=== PATIENT | male | born 1930 | race Hispanic/Latino ===

== ENCOUNTER 2016-10-17 10:08 | Outpatient (CLI) | payer MEDICARE, OTHER ==
[2016-10-17 10:40] LABS: Prothrombin Time 22.2 SEC (12.0-14.7)
== END 2016-10-17 10:09 | disposition home or self-care (01) ==
LOC: BURLAB 10:08
PROVIDERS: ATTEND Nurse Practitioner
DX: I48.91 Unspecified atrial fibrillation (principal)
CPT/HCPCS: 36415; 85610

== ENCOUNTER 2016-10-30 08:08 | Outpatient (CLI) | payer MEDICARE, OTHER ==
[2016-10-30 09:07] LABS: Prothrombin Time 26.9 SEC (12.0-14.7)
== END 2016-10-30 08:09 | disposition home or self-care (01) ==
LOC: BURLAB 08:08
PROVIDERS: ATTEND Nurse Practitioner
DX: I48.91 Unspecified atrial fibrillation (principal)
CPT/HCPCS: 36415; 85610

== ENCOUNTER 2016-11-12 07:59 | Outpatient (CLI) | payer MEDICARE, OTHER ==
[2016-11-12 10:12] LABS: ALT (SGPT) 16 U/L (0-55); AST (SGOT) 22 U/L (5-34); Alkaline Phosphatase 142 U/L (40-150); Anion Gap 15 mmol/L (10-20); BUN (Urea Nitrogen) 12 mg/dL (8.4-25.7); Calc. Creatinine Clearance 0 mL/min (70-130); Calcium 9.1 mg/dL (7.8-10.44); Carbon Dioxide 27 mmol/L (23-31); Chloride 103 mmol/L (98-107); Estimated GFR-MDRD 49; Globulin 2.8 g/dL (2.4-3.5); LDL Cholesterol, Calculated 77 mg/dL; Protein, Total 6.7 g/dL (5.8-8.1)
[2016-11-12 13:06] LABS: #Basophils 0.1 thou/uL (0.0-0.2); #Eosinphils 0.8 thou/uL (0.0-0.7); #Lymphocytes 1.1 thou/uL (1.20-3.40); #Monocytes 0.9 thou/uL (0.11-0.59); #Neutrophils 4.2 thou/uL (1.40-6.50); %Basophils 1.3 % (0.0-1.0); %Eosinophils 11.8 % (0.0-10.0); %Monocytes 12.4 % (0.0-10.0); Hematocrit 37.2 % (42.0-52.0); Mean Platelet Volume 7.4 fL (7.4-10.4); Red Blood Cell (RBC) Count 4.09 mill/uL (4.70-6.10); White Blood Cell (WBC) Count 7.1 thou/uL (4.8-10.8)
[2016-11-12 19:44] LABS: Microalbumin Urine 6.5 mg/dL (0.5-50.0)
== END 2016-11-12 08:00 | disposition home or self-care (01) ==
LOC: BURLAB 07:59
PROVIDERS: ATTEND Family Medicine
DX: Z12.5 Encounter for screening for malignant neoplasm of prostate (principal); E78.00 Pure hypercholesterolemia, unspecified; I10 Essential (primary) hypertension; Z13.9 Encounter for screening, unspecified; I48.91 Unspecified atrial fibrillation
CPT/HCPCS: 36415; 80053; 80061; 82043; 82570; 85025; G0103

== ENCOUNTER 2016-11-25 11:56 | Outpatient (CLI) | payer MEDICARE, OTHER ==
[2016-11-25 12:38] LABS: Prothrombin Time 20.4 SEC (12.0-14.7)
== END 2016-11-25 11:57 | disposition home or self-care (01) ==
LOC: BURLAB 11:56
PROVIDERS: ATTEND Nurse Practitioner
DX: I48.91 Unspecified atrial fibrillation (principal)
CPT/HCPCS: 36415; 85610

== ENCOUNTER 2016-12-18 09:11 | Outpatient (CLI) | payer MEDICARE, OTHER ==
[2016-12-18 09:40] LABS: Prothrombin Time 21.4 SEC (12.0-14.7)
== END 2016-12-18 09:12 | disposition home or self-care (01) ==
LOC: BURLAB 09:11
PROVIDERS: ATTEND Nurse Practitioner
DX: I48.91 Unspecified atrial fibrillation (principal)
CPT/HCPCS: 36415; 85610

== ENCOUNTER 2017-01-01 07:57 | Outpatient (CLI) | payer MEDICARE, OTHER ==
[2017-01-01 08:54] LABS: INR-International Normal Ratio 1.4; Prothrombin Time 17.6 SEC (12.0-14.7)
== END 2017-01-01 07:58 | disposition home or self-care (01) ==
LOC: BURLAB 07:57
PROVIDERS: ATTEND Nurse Practitioner
DX: I48.91 Unspecified atrial fibrillation (principal)
CPT/HCPCS: 36415; 85610

== ENCOUNTER 2017-01-09 08:45 | Outpatient (CLI) | payer MEDICARE, OTHER ==
[2017-01-09 09:08] LABS: INR-International Normal Ratio 1.4; Prothrombin Time 17.2 SEC (12.0-14.7)
== END 2017-01-09 08:46 | disposition home or self-care (01) ==
LOC: BURLAB 08:45
PROVIDERS: ATTEND Nurse Practitioner
DX: I48.91 Unspecified atrial fibrillation (principal)
CPT/HCPCS: 36415; 85610

== ENCOUNTER 2017-01-22 08:21 | Outpatient (CLI) | payer MEDICARE, OTHER ==
[2017-01-22 09:03] LABS: INR-International Normal Ratio 2.1; Prothrombin Time 24.7 SEC (12.0-14.7)
== END 2017-01-22 08:22 | disposition home or self-care (01) ==
LOC: BURLAB 08:21
PROVIDERS: ATTEND Nurse Practitioner
DX: I48.91 Unspecified atrial fibrillation (principal)
CPT/HCPCS: 36415; 85610

== ENCOUNTER 2017-02-05 07:53 | Outpatient (CLI) | payer MEDICARE, OTHER ==
[2017-02-05 08:15] LABS: INR-International Normal Ratio 1.9; Prothrombin Time 21.9 SEC (12.0-14.7)
== END 2017-02-05 07:54 | disposition home or self-care (01) ==
LOC: BURLAB 07:53
PROVIDERS: ATTEND Nurse Practitioner
DX: I48.91 Unspecified atrial fibrillation (principal)
CPT/HCPCS: 36415; 85610

== ENCOUNTER 2017-02-19 08:32 | Outpatient (CLI) | payer MEDICARE, OTHER ==
[2017-02-19 09:09] LABS: INR-International Normal Ratio 1.8; Prothrombin Time 21.4 SEC (12.0-14.7)
== END 2017-02-19 08:33 | disposition home or self-care (01) ==
LOC: BURLAB 08:32
PROVIDERS: ATTEND Nurse Practitioner
DX: I48.91 Unspecified atrial fibrillation (principal)
CPT/HCPCS: 36415; 85610

== ENCOUNTER 2017-03-04 12:56 | Outpatient (CLI) | payer MEDICARE, OTHER ==
[2017-03-04 13:23] LABS: Prothrombin Time 23.6 SEC (12.0-14.7)
== END 2017-03-04 12:57 | disposition home or self-care (01) ==
LOC: BURLAB 12:56
PROVIDERS: ATTEND Nurse Practitioner
DX: I48.91 Unspecified atrial fibrillation (principal)
CPT/HCPCS: 36415; 85610

== ENCOUNTER 2017-03-18 08:41 | Outpatient (CLI) | payer MEDICARE, OTHER ==
[2017-03-18 09:04] LABS: INR-International Normal Ratio 1.8; Prothrombin Time 21.7 SEC (12.0-14.7)
== END 2017-03-18 08:42 | disposition home or self-care (01) ==
LOC: BURLAB 08:41
PROVIDERS: ATTEND Nurse Practitioner
DX: I48.91 Unspecified atrial fibrillation (principal)
CPT/HCPCS: 36415; 85610

== ENCOUNTER 2017-04-01 08:02 | Outpatient (CLI) | payer MEDICARE, OTHER ==
[2017-04-01 08:26] LABS: INR-International Normal Ratio 1.9; Prothrombin Time 22.5 SEC (12.0-14.7)
== END 2017-04-01 08:03 | disposition home or self-care (01) ==
LOC: BURLAB 08:02
PROVIDERS: ATTEND Nurse Practitioner
DX: I48.91 Unspecified atrial fibrillation (principal)
CPT/HCPCS: 36415; 85610

== ENCOUNTER 2017-04-28 07:44 | Outpatient (CLI) | payer MEDICARE, OTHER ==
[2017-04-28 08:09] LABS: INR-International Normal Ratio 1.4; Prothrombin Time 17.4 SEC (12.0-14.7)
== END 2017-04-28 07:45 | disposition home or self-care (01) ==
LOC: BURLAB 07:44
PROVIDERS: ATTEND Nurse Practitioner
DX: I48.91 Unspecified atrial fibrillation (principal)
CPT/HCPCS: 36415; 85610

== ENCOUNTER 2017-05-12 07:53 | Outpatient (CLI) | payer MEDICARE, OTHER ==
[2017-05-12 08:17] LABS: INR-International Normal Ratio 1.9; Prothrombin Time 22.7 SEC (12.0-14.7)
== END 2017-05-12 07:54 | disposition home or self-care (01) ==
LOC: BURLAB 07:53
PROVIDERS: ATTEND Nurse Practitioner
DX: I48.91 Unspecified atrial fibrillation (principal)
CPT/HCPCS: 36415; 85610

== ENCOUNTER 2017-05-26 07:47 | Outpatient (CLI) | payer MEDICARE, OTHER ==
[2017-05-26 08:13] LABS: INR-International Normal Ratio 3.8; Prothrombin Time 39.7 SEC (12.0-14.7)
== END 2017-05-26 07:48 | disposition home or self-care (01) ==
LOC: BURLAB 07:47
PROVIDERS: ATTEND Nurse Practitioner
DX: I48.91 Unspecified atrial fibrillation (principal)
CPT/HCPCS: 36415; 85610

== ENCOUNTER 2017-06-16 09:02 | Outpatient (CLI) | payer MEDICARE, OTHER ==
[2017-06-16 10:00] LABS: INR-International Normal Ratio 2.9; Prothrombin Time 31.9 SEC (12.0-14.7)
== END 2017-06-16 09:03 | disposition home or self-care (01) ==
LOC: BURLAB 09:02
PROVIDERS: ATTEND Nurse Practitioner
DX: I48.91 Unspecified atrial fibrillation (principal)
CPT/HCPCS: 36415; 85610